=== PATIENT | male | born 1965 | race Two or more races ===

== ENCOUNTER → 2018-03-04 | Day surgery (SDC) | payer MEDICARE, OTHER ==
[~2018-03-04] MED LIST: LIDOCAINE 1% INJ-PF (10 MG/ML) 30 ML SDV ONE
--- NOTE | 2018-03-04 13:59 | RADIOLOGY REPORT (SQ) ---
EXAM DESCRIPTION: FLUORO/NEEDLE PLACEMENT COMPLETE DATE/TIME: 03/04/2018 1:44 pm REASON FOR STUDY: PAIN IN RIGHT SHOULDER FINDINGS: Please see combined report for performance of procedure and radiologic supervision and int erpretation. IMPRESSION: Please see combined report for performance of procedure and radiologic supervision and i nterpretation. Reading location - IP/workstation name: [email or web address]
--- NOTE | 2018-03-04 13:59 | RADIOLOGY REPORT (SQ) ---
EXAM DESCRIPTION: ARTHRO SHOULDER INJECTION COMPLETED DATE/TIME: 03/04/2018 1:44 pm REASON FOR STUDY: PAIN IN RIGHT SHOULDER COMPARISON: None. FLUOROSCOPY TIME: 13 seconds 1 images saved to PACS. LIMITATIONS: None. PROCEDURE: Procedure, risks, benefits and alternatives explained to patient who then gave written co nsent. The right shoulder was marked and a time out was called for correct procedure verification. P osterior entry site marked using fluoroscopic guidance. Shoulder prepped and draped using sterile te chnique. Local anesthesia achieved using 1% lidocaine injection. Hypodermic needle introduced into the joint space under direct fluoroscopic visualization. Non-ionic contrast instilled to confirm intr a-articular position. Dilute gadolinium solution then injected. Needle removed and entry site covere d with sterile bandage. No immediate complications noted. TECHNIQUE: Digital images acquired during fluoroscopy and stored on PACS. Patient immediately take n to the MR suite for additional imaging. INJECTION LOCATION: Posterior CONTRAST TYPE AND AMOUNT: 10 mL ProHance solution IMPRESSION: SUCCESSFUL NEEDLE PLACEMENT AND INJECTION FOR right SHOULDER MR ARTHROGRAM USING POSTERI OR APPROACH. COMMENT: Quality ID 145: Final reports for procedures using fluoroscopy that document radiation exp osure indices, or exposure time and number of fluorographic images (if radiation exposure indices are not available) TECHNICAL DOCUMENTATION: JOB ID: [id number] [employer]- All Rights Reserved Reading location - IP/workstation name: [email or web address]
--- NOTE | 2018-03-04 14:59 | RADIOLOGY REPORT (SQ) ---
EXAM DESCRIPTION: MRI RT UPPER JOINT WITH COMPLETED DATE/TIME: 03/04/2018 2:30 pm REASON FOR STUDY: PAIN IN RIGHT SHOULDER COMPARISON: None. TECHNIQUE: Right shoulder images acquired and stored on PACS. Oblique coronal, oblique sagittal, and axial imaging to include fat sensitive sequences as T1, water sensitive sequences as FST2/STIR, and contrast sensitive sequences as FST1. LIMITATIONS: Susceptibility artifact. FINDINGS: JOINT DISTENTION: Adequate distention for interpretation. No contrast in the subacromial bursa. BONE MARROW AND CORTEX: Normal. No significant osteophytes. No edema or defects. AC JOINT: Type II acromion. Mild AC joint arthropathy. GLENOHUMERAL JOINT: No subluxation or dislocation. No focal chondral defects or reactive bone changes . ROTATOR CUFF: Intact without significant tendinopathy, partial or full-thickness tears. No peritendin itis. LABRUM AND BICEPS LABRAL COMPLEX: Superior glenohumeral ligament not well visualized. Artifact assoc iated with prior labral repair. There is fraying of the superior labrum especially anteriorly. No d efinite recurrent tear. INFERIOR LABRAL COMPLEX: Bony glenoid and labrum intact. IGHL intact without thickening or tear. No p aralabral cysts. ADJACENT SOFT TISSUES: No masses or nodes. OTHER: No other significant finding. IMPRESSION: Prior slap repair. There is fraying of the superior labrum but no definite recurrent te ar is identified. TECHNICAL DOCUMENTATION: JOB ID: [id number] [employer]- All Rights Reserved Reading location - IP/workstation name: [email or web address]
== END ==
LOC: RAD 12:48
PROVIDERS: ATTEND Orthopaedic Surgery
DX: M25.511 Pain in right shoulder (principal)
CPT/HCPCS: 73222; 77002; 23350; A9576; J3490

== ENCOUNTER 2019-02-03 08:38 | Day surgery (SDC) | payer MEDICARE, OTHER ==
[~2019-02-03 08:38] MED LIST changes: +CEFAZOLIN 1 GM/D5W RTU 1 GM/50 ML RTUPB IV PRN; +LIDOCAINE 0.5% INJ-PF (5 MG/ML) 50 ML SDV SUBCUT PRN; -LIDOCAINE 1% INJ-PF (10 MG/ML) 30 ML SDV ONE; +RINGERS SOLUTION,LACTATED 1,000 ML IV PRN
[2019-02-03] MEDS ORDERED: FENTANYL CITRATE INJ/PF 100 MCG/2 ML AMPUL ONE (09:44)
[2019-02-03] MEDS ORDERED: MIDAZOLAM 2 MG/2 ML INJ ONE (09:44)
[2019-02-03] MEDS ORDERED: PROPOFOL INJ 200 MG/20 ML VIAL IV ONE (09:44)
[2019-02-03] MEDS ORDERED: BUPIVACAINE HCL 0.5 % INJ/PF 30 ML SDV ONE (09:46)
[2019-02-03] MEDS ORDERED: BUPIVACAINE INJ/PF LIPOSOME/PF 266 MG/20 ML SDV ONE (09:46)
[2019-02-03] MEDS ORDERED: LIDOCAINE 2% INJ (20 MG/ML) 20 ML MDV ONE (09:46)
[2019-02-03] MEDS: POLYMYXIN B SULFATE INJ 500000 UNIT VIAL ONE ×2 (11:01)
[2019-02-03] MEDS: NORMAL SALINE INJ/PF 0.9% 10 ML SDV ONE ×2 (11:01)
[2019-02-03] MEDS: BACITRACIN INJ 50,000 UNIT VIAL ONE ×2 (11:01)
--- NOTE | 2019-02-03 12:22 | RADIOLOGY REPORT (SQ) ---
EXAM DESCRIPTION: FOOT LEFT 2 VIEWS; NO CHG FLUORO COMPLETED DATE/TIME: 02/03/2019 11:54 am REASON FOR STUDY: EXCISION OF BONE M89.372 HYPERTROPHY OF BONE, LEFT ANKLE AND FOOT COMPARISON: None. FLUOROSCOPY TIME: 4 seconds. 4 images saved to PACS. TECHNIQUE: Intra-operative images acquired during surgical procedure to evaluate progress. NUMBER OF IMAGES: 4 images. LIMITATIONS: None. FINDINGS: Images of the 1st toe acquired during procedure. IMPRESSION: IMAGE(S) OBTAINED DURING PROCEDURE. COMMENT: Quality ID 145: Final reports for procedures using fluoroscopy that document radiation exp osure indices, or exposure time and number of fluorographic images (if radiation exposure indices are not available) Please consult full operative report of the attending physician for description of the procedure. TECHNICAL DOCUMENTATION: JOB ID: [id number] [employer]- All Rights Reserved Reading location - IP/workstation name: [email or web address]
--- NOTE | 2019-02-03 12:22 | RADIOLOGY REPORT (SQ) ---
EXAM DESCRIPTION: FOOT LEFT 2 VIEWS; NO CHG FLUORO COMPLETED DATE/TIME: 02/03/2019 11:54 am REASON FOR STUDY: EXCISION OF BONE M89.372 HYPERTROPHY OF BONE, LEFT ANKLE AND FOOT COMPARISON: None. FLUOROSCOPY TIME: 4 seconds. 4 images saved to PACS. TECHNIQUE: Intra-operative images acquired during surgical procedure to evaluate progress. NUMBER OF IMAGES: 4 images. LIMITATIONS: None. FINDINGS: Images of the 1st toe acquired during procedure. IMPRESSION: IMAGE(S) OBTAINED DURING PROCEDURE. COMMENT: Quality ID 145: Final reports for procedures using fluoroscopy that document radiation exp osure indices, or exposure time and number of fluorographic images (if radiation exposure indices are not available) Please consult full operative report of the attending physician for description of the procedure. TECHNICAL DOCUMENTATION: JOB ID: [id number] [employer]- All Rights Reserved Reading location - IP/workstation name: [email or web address]
--- NOTE | 2019-02-03 12:29 | [facility] OPERATIVE REPORT E ---
[facility] Operative Report NAME: BRYANNA KEY AGE: 53Y DATE OF SURGERY: 02/03/2019 ROOM: PREOPERATIVE DIAGNOSIS: HYPERTROPHIED BONE DISTAL AND PROXIMAL PHALANX, LEFT HALLUX. POSTOPERATIVE DIAGNOSIS: HYPERTROPHIED BONE DISTAL AND PROXIMAL PHALANX, LEFT HALLUX. OPERATION: Partial excision of bone from the phalanx, left hallux. SURGEON: MARIA E TO DPM SENIOR SYSTEMS PROGRAMMER: Dell Nicholson DPM PROCEDURE: Following the induction of IV regional local anesthesia, the left foot and leg were prepped and draped in the usual sterile manner. A pneumatic tourniquet was placed around the left ankle and inflated to 250 mmHg, after exsanguination of limb via Esmarch bandage. The following surgical procedure was then performed: Partial excision of bone from the phalanx of the left hallux. Attention was directed to the medial aspect of the left hallux. An approximate 3 cm incision was made. The capsular incision was made in the same manner as the original skin incision and the capsule was reflected medially and laterally from the bone. The interphalangeal joint of the hallux was identified. It was noted that there was a fractured piece of bone at the base of the distal phalanx at the medial condyle and this was removed utilizing a rongeur. It was also noted that there was an ossicle in the plantar aspect of the joint and this was sharply excised and removed in toto. There was a bone spur at the distal medial aspect of the proximal phalanx that was impinging the range of motion of the IP joint. This bone spur was excised with a rongeur. The medial aspect of the distal and proximal phalange was rasped smooth utilizing a [employer] cross-cut rasp. An x-ray was taken and it was noted there was still hypertrophied bone at the distal aspect of the medial aspect of the distal phalanx. Utilizing a rongeur this hypertrophied bone was also removed and the area was then again rasped smooth. Another x-ray was taken and it was noted that the medial aspect of the distal phalanx no longer showed any evidence of any enlarged or hypertrophied bone. The area was then flushed with copious amounts of an antibacterial saline solution until no bony debris was noted in the wound. The cartilage was inspected at the interphalangeal joint and it was noted that it was in good condition with no erosions present. The capsule was then coapted and maintained utilizing simple interrupted sutures of 3-0 Vicryl and the skin was then coapted and maintained utilizing a horizontal mattress sutures of 5-0 nylon. A dry sterile dressing was then applied, consisting of Wayne silk, 4 x 4s, Conform, Kerlix, and Coban. The pneumatic tourniquet was released. It was noted that all digits were warm and viable and patient was transferred to the recovery room. DICTATING PHYSICIAN: MARIA E TO D.P.M. [id number] PHY#: [id number] ID: [id number] JOB#: [id number] ACCT: [id number] cc:MARIA E TO DPM > MTDD
--- NOTE | 2019-02-03 14:09 | [facility] DISCHARGE SUMMARY E ---
[facility] Discharge Summary NAME: BRYANNA KEY AGE: 53Y ADMITTED: 02/03/2019 DISCHARGED: 02/03/2019 SURGICAL PROCEDURE: Partial excision of bone from the phalanx of the left hallux. POSTOPERATIVE DIAGNOSIS: HYPERTROPHIED BONE, LEFT HALLUX. SURGEON: Maria E Caputo DPM HOSPITAL COURSE: The patient was admitted to [facility] with a chief complaint of a painful area on his left big toe. He stated that whenever he moved it or pivoted in a certain way that he experienced a lot of pain in it. X-ray showed that there was a fracture fragment of the base of the distal phalanx at the medial condyle and that there was also enlargement of the bone along the medial condyle. The patient desired to have this problem surgically corrected. He underwent the above surgical procedure without any complications and he was discharged with a surgical shoe with a ice pack, postoperative instructions, and with postoperative prescriptions for Percocet 5/325 mg #30, Phenergan 25 mg #15. He was given a followup appointment in the doctor's office in 1 week. DICTATING PHYSICIAN: MARIA E CAPUTO D.P.M. [id number] PHY#: [id number] ID: [id number] JOB#: [id number] ACCT: [id number] cc:MARIA E CAPUTO DPM >
== END 2019-02-03 12:31 | disposition home or self-care (01) ==
LOC: SC 08:38
PROVIDERS: ATTEND Podiatrist Foot Surgery
DX: M89.372 Hypertrophy of bone, left ankle and foot (principal)
CPT/HCPCS: 73620; 01480; 28160; J2250; J3490 ×5; J0690; J3010; J2704; C9290